=== PATIENT | female | born 1940 | race Caucasian/White ===

== ENCOUNTER 2024-01-05 13:33 | Outpatient (CLI) | payer MEDICARE, SELFPAY ==
[2024-01-05 16:47] LABS: Alanine Aminotransferase 38 U/L (6-35); Albumin Level 4.7 g/dL (3.5-5.1); Alkaline Phosphatase 86 U/L (38-126); Anion Gap 13 mmol/L (4-12); Aspartate Amino Transferase 51 U/L (14-36); Bilirubin,Total 0.3 mg/dL (0.2-1.3); Blood Urea Nitrogen 24 mg/dL (7-17); Calcium 8.7 mg/dL (8.4-10.2); Carbon Dioxide 21 mmol/L (22-30); Chloride 99 mmol/L (98-107); Estimated Glomerular Filt Rate 60; Glucose 93 mg/dL (65-110); Potassium 3.8 mmol/L (3.4-5.0); Sodium 133 mmol/L (137-145)
[2024-01-05 17:03] LABS: Vitamin D 25 Hydroxy 46.2 ng/mL
== END 2024-01-05 13:34 | disposition home or self-care (01) ==
LOC: ANHLAB 13:54
PROVIDERS: Internal Medicine; Visit Provider Internal Medicine Hematology & Oncology
DX: E46 Unspecified protein-calorie malnutrition (principal); E55.9 Vitamin D deficiency, unspecified; M81.0 Age-related osteoporosis without current pathological fracture
CPT/HCPCS: 36415; 80053; 82306